=== PATIENT | female | born 1985 | race American Indian/Alaskan Native ===

== ENCOUNTER 2018-06-02 12:54 | Outpatient (CLI) | payer OTHER ==
[2018-06-02 13:19] VITALS: BP 117/68
[2018-06-02] MEDS ORDERED: LACTATED RINGERS 500 ML IV ONE (14:07)
[2018-06-02] MEDS ORDERED: ROCEPHIN/NS 1 GM/50 ML 1 GM/50 ML BAG IV ONE (14:09)
== END 2018-06-02 15:48 | disposition home or self-care (01) ==
LOC: TRG 12:54
PROVIDERS: ATTEND Obstetrics & Gynecology
DX: O47.02 False labor before 37 completed weeks of gestation, second trimester (principal); Z3A.21 21 weeks gestation of pregnancy
CPT/HCPCS: 96360; J0696; J7120

== ENCOUNTER 2018-10-13 05:05 | Inpatient (IN) | payer OTHER ==
[2018-10-13] MEDS ORDERED: LACTATED RINGERS 1,000 ML ONE (05:29)
[2018-10-13] MEDS ORDERED: BRETHINE SUB-Q PRN (06:27)
[2018-10-13] MEDS ORDERED: MINERAL OIL PO PRN (06:27)
[2018-10-13] MEDS ORDERED: BRETHINE IVP PRN (06:27)
[2018-10-13] MEDS ORDERED: AMPICILLIN/NS 2 GM/100 ML 2 GM/100 ML BAG IV ONE (06:27)
[2018-10-13 06:42] LABS: Hemoglobin 9.4 gm/dl (10.1-14.3); Mean Corpuscular HGB Conc 34 % (30-34); Mean Corpuscular Volume 71 fl (79-97); Platelet Count 259 K/mm3 (140-440); Red Blood Count 3.94 M/mm3 (3.65-5.03); Red Cell Distribution Width 16.9 % (13.2-15.2)
[2018-10-13] MEDS ORDERED: LACTATED RINGERS 1,000 ML IV SCH ×3 (07:00→12:00)
[2018-10-13] MEDS ORDERED: PITOCin/NS 20 UNIT/1000ML DRIP 20 UNITS/1,000 ML BAG IV SCH ×3 (07:00→12:00)
--- NOTE | 2018-10-13 08:36 | History and Physical Report ---
History of Present Illness Date of examination: 10/13/18 Date of admission: 10/13/18 05:11 Chief complaint: Water broke and wilfredo History of present illness: Pt is a 33 yo at 41.0 wks EGA who presents with SROM at 0430 today with strong contractions q4-7 minutes. She received care with [facility]. complicated by hypothyroidism, UTI treated and cured, anemia of , and GBS positive status. The fetus has had an unstable lie at term. Past History Past Medical History: thyroid disease (hypothyroid) Past Surgical History: denies: section, myomectomy Social history: no significant social history, . denies: smoking, alcohol abuse, prescription drug abuse - Obstetrical History Expected Date of Delivery: 10/06/18 Actual Gestation: 41 Week(s) 0 Day(s) : 3 Para: 2 Hx # Term Pregnancies: 2 Number of Living Children: 2 Medications and Allergies Allergies Allergy/AdvReac Type Severity Reaction Status Date / Time No Known Allergies Allergy Verified 06/02/18 13:07 Home Medications Medication Instructions Recorded Confirmed Last Taken Type Pnv No.95/Ferrous Fum/Folic AC 1 each PO DAILY 08/31/15 10/13/18 10/12/18 History [ Caplet] Amoxicillin [Amoxicillin TAB] 875 mg PO BID 10 Days #20 tablet 03/08/18 Unknown Rx Vit-Fe Fumar-FA [ 1 tab PO QDAY #30 tablet 03/08/18 10/12/18 09:00 Rx Vitamin] guaiFENesin ER [Mucinex ER] 600 mg PO Q12H 5 Days #10 tablet.er 03/08/18 10/13/18 10/12/18 Rx Synthroid 175 mg PO DAILY 10/13/18 10/13/18 10/12/18 07:00 History Active Meds: Active Medications Ephedrine Sulfate (Ephedrine Sulfate) 10 mg IV Q2M PRN PRN Reason: Hypotension Fentanyl (Sublimaze) 100 mcg IV ONCE ONE Stop: 10/13/18 08:30 Oxytocin/Sodium Chloride (Pitocin/Ns 20 Unit/1000ml Drip) 20 units in 1,000 mls @ 125 mls/hr IV DIRECT JOSS Lactated Ringer's (Lactated Ringers) 1,000 mls @ 125 mls/hr IV DIRECT JOSS Last Admin: 10/13/18 06:44 Dose: 125 mls/hr Documented by: Ampicillin Sodium (Ampicillin/Ns 1 Gm/50 Ml) 1 gm in 50 mls @ 100 mls/hr IV Q4HR JOSS; Protocol Mineral Oil (Mineral Oil) 30 ml PO QHS PRN PRN Reason: Constipation Terbutaline Sulfate (Brethine) 0.25 mg SUB-Q ONCE PRN PRN Reason: Hyperstimulation/Hypertonicity Terbutaline Sulfate (Brethine) 0.25 mg IVP ONCE PRN PRN Reason: Hyperstimulation/Hypertonicity Review of Systems All systems: negative Neurological: no seizures, no headaches, no double vision - Vital Signs Vital signs: Vital Signs Pulse BP 71 170/80 10/13/18 05:15 10/13/18 05:15 Temp Pulse Resp BP Pulse Ox 97.9 F 76 16 144/93 100 10/13/18 08:13 10/13/18 08:28 10/13/18 08:13 10/13/18 08:13 10/13/18 08:28 - Physical Exam Breasts: Positive: deferred Cardiovascular: Regular rate, Normal S1, Normal S2, No murmurs Lungs: Positive: Clear to auscultation, Normal air movement Abdomen: Positive: normal appearance, soft Genitourinary (Female): Positive: normal external genitalia Uterus: Positive: enlarged (gravid) Extremities: Positive: normal - Obstetrical FHR: category 1 Uterine Contraction Monitor Mode: External Cervical Dilatation: 4 (No presenting part palpated) Cervical Effacement Percentage: 70 station: high Uterine Contraction Pattern: Irregular Uterine Tone Measurement Phase: Contraction Uterine Contraction Intensity: Strong/Firm Results Result Diagrams: 10/13/18 05:30 Abnormal lab results 10/13/18 Range/Units 05:30 Hgb 9.4 L (10.1-14.3) gm/dl Hct 28.0 L (30.3-42.9) % MCV 71 L (79-97) fl MCH 24 L (28-32) pg RDW 16.9 H (13.2-15.2) % All other labs normal. Assessment and Plan A: 33 yo at 41.0 wks Preeclampsia Malpresentation with unstable lie by ultrasound Active labor GBS positive Anemia Hypothyroidism P: BPP Plan for LTCS now with Dr. Koo 2g amp infused Initiate magnesium sulfate after
--- NOTE | 2018-10-13 08:47 | Event Note ---
Date: 10/13/18 Ultrasound reveals breech presentation. Proceed to primary section.
--- NOTE | 2018-10-13 08:56 | Anesthesia Consultation ---
Anesthesia Consult and Med Hx Date of service: 10/13/18 - Airway Anesthetic Teeth Evaluation: Good ROM Head & Neck: Adequate Mental/Hyoid Distance: Adequate Mallampati Class: Class II - Pulmonary Exam CTA: Yes - Cardiac Exam Cardiac Exam: RRR - Pre-Operative Health Status ASA Pre-Surgery Classification: ASA2 Proposed Anesthetic Plan: Spinal - Pulmonary Hx Asthma: No COPD: No Hx Pneumonia: No - Cardiovascular System Hx Hypertension: No - Central Nervous System Hx Seizures: No Hx Psychiatric Problems: No - Endocrine Hx Renal Disease: No Hx End Stage Renal Disease: No Hx Hypothyroidism: Yes Hx Hyperthyroidism: No - Hematic Hx Anemia: No Hx Sickle Cell Disease: No - Other Systems Hx Alcohol Use: No
--- NOTE | 2018-10-13 08:56 | Anesthesia Day of Surgery ---
Anesthesia Day of Surgery - Day of Surgery Patient Examined: Yes Patient H&P Reviewed: Yes Patient is NPO: Yes
[2018-10-13] MEDS ORDERED: REGLAN IV NR (09:00)
[2018-10-13] MEDS ORDERED: ANCEF/STERILE WATER 2 GM/20 ML 2 GM/20 ML SYRINGE IV NR (09:00)
[2018-10-13] MEDS ORDERED: SUBLIMAZE IV ONE (09:00)
[2018-10-13] MEDS ORDERED: PEPCID IV NR (09:00)
[2018-10-13] MEDS ORDERED: BICITRA PO NR (09:00)
[2018-10-13 09:02] LABS: Alanine Aminotransferase 11 units/L (7-56); Uric Acid 4.3 mg/dL (3.5-7.6)
[2018-10-13] MEDS ORDERED: ZOFRAN ONE (09:05)
[2018-10-13] MEDS ORDERED: SUBLIMAZE ONE (09:05)
--- NOTE | 2018-10-13 09:32 | Ultrasound Report ---
ULTRASOUND OB LIMITED ULTRASOUND OB BIOPHYSICAL PROFILE HISTORY: well being, post dates, checking presentation. TECHNIQUE: Transabdominal grayscale ultrasound with color Doppler imaging. COMPARISON: None at this facility. FINDINGS: A single intrauterine is identified with heart rate measuring 145 bpm. position is tr ansverse with head to maternal right. breathing movements, movements, posture and tone and qualitative amniotic fluid vol ume were scored 2. IMPRESSION: presentation is transverse with head to the maternal right. Biophysical profile score 8/8. Signer Name: Salvador Braden Jr, MD Signed: 10/13/2018 9:27 AM Workstation Name: [id number]
[2018-10-13] MEDS ORDERED: WATER FOR IRRIG STERILE IR ONE (09:50)
[2018-10-13] MEDS ORDERED: NACL 0.9% IR ONE (09:50)
[2018-10-13] MEDS ORDERED: BENADRYL ONE (10:11)
[2018-10-13] MEDS ORDERED: TORADOL ONE (10:11)
[2018-10-13] MEDS ORDERED: DILAUDID ONE ×2 (10:22→10:52)
[2018-10-13] MEDS ORDERED: VERSED ONE (10:23)
[2018-10-13] MEDS ORDERED: AMPICILLIN/NS 1 GM/50 ML 1 GM/50 ML BAG IV SCH (10:27)
--- NOTE | 2018-10-13 11:11 | Procedure Note ---
OB Delivery Note - Delivery Date of Delivery: 10/13/18 Surgeon: MELANIE LOFTON Estimated blood loss: 1000cc - Section Preop diagnosis: breech, other (active labor, SROM) Postop diagnosis: same section procedure: section, primary low transverse Disposition: PACU Complications: none Narrative: Please see operative report. - A at 1 minute: 9 at 5 minutes: 9 Infant Gender: Female (3283g (7lb 4oz) @ 1007 am)
--- NOTE | 2018-10-13 11:20 | Operative Report ---
Operative Report Operative Report: Date of procedure: October 13, 2018 Preoperative diagnosis: 1) IUP at 41w0d 2) SROM 3) Active Labor 4) Malpresenta tion- Double footling Breech 5) Severe Preeclampsia Postoperative diagnosis: Same 6) Suspected Endometriosis Procedure: Primary low transverse section Surgeon: Ritu Koo M.D. Anesthesia: Regional Findings: 1) Viable female , Apgars 9 and 9, weight 3283g, (7 lb 4 oz) in double footling breech presentation 2) Normal appearing ovaries and tubes 3) Numerous brown subcentimeter implants over entire anterior surface of the uterus, posterior surface of the uterus, parietal peritoneum and bladder flap suggestive of endometriosis Estimated blood loss: 1000 mL IV fluids: 1400 mL Urine output: 300 mL, clear at the end of the procedure Drains: Campbell to gravity Specimens: Implant from anterior surface of uterus to pathology Complications: None. Counts correct x 3 Disposition: Stable to PACU Indication for procedure: Pt is a 33 year old [place] female at 41w0d who presents with rupture of membranes in active labor found to be in breech presentation. The decision w as made to proceed with delivery. Operation in detail: After the risks, benefits, alternatives and complications were explained to the patient she gave informed consent for the procedure. She was subsequently taken to the operating room where spinal anesthesia was noted to be adequate. She was subsequently placed in the dorsal supine position with leftward tilt and prepped and draped in a normal sterile fashion. heart tones were noted to be in the 140s prior to incision. A timeout was performed. A Pfannenstiel skin incision was made with the knife and carried down to the layer of the fascia with the Bovie. The fascia was incised in the midline and the fascial incision was extended bilaterally with the Bovie. Attention was then turned to the superior aspect of the incision which was grasped with two Kochers, tented up, and dissected off the rectus muscles. Attention was then turned to the inferior aspect of the incision which was grasped with two Kochers, tented up and dissected off the rectus muscles. The rectus muscles were then in the midline. The peritoneum was then entered bluntly. Upon entry into the peritoneal cavity innumerable brown implants were noted on peritoneum , anterior surface of the uterus and the vesicouterine peritoneum. The peritoneal incision was extended with good visualization of the bladder. The peritoneal incision was then stretched. An Seng self-retaining retractor was placed for visualization. The bladder blade was placed. The vesicouterine peritoneum was not well developed and a bladder flap was not created. A transverse incision was made in the lower uterine segment with a knife and extended bilaterally with the bandage scissors. The buttocks was noted to socked into a pocket on the maternal left, but was delivered with some difficulty along with the legs to the sacrum. The fetus was then covered with a moist towel and the remainder of the torso, arms and then head were delivered without difficulty. was bulb suctioned at delivery. The cord was clamped and cut and the was handed to NICU staff in attendance. The placenta was then delivered manually. The uterus was then exteriorized and cleared of all clots and debris. The brown colored implants were noted on the posterior surface fo the uterus as well. The hysterotomy was then reapproximated with 0 Vicryl in a running locked fashion. A figure of eight of the same suture was used to obtain hemostasis. The hysterotomy was inspected and hemostasis was noted. The Seng self-retaining retractor was removed. The gutters were irrigated and cleared of all clots and debris. The hysterotomy was again inspected and noted to be hemostatic. Surgicel was placed over the hysterotomy. The peritoneum was reapproximated with 2-0 Vicryl in a running fashion incorporating the rectus muscles. The fascia was reapproximated with 0 Vicryl in a running fashion. The skin was reapproximated with diane. The incision was then covered with a pressure dressing. The procedure was then ended. The patient tolerated the procedure well and was taken to the PACU in stable condition. All instrument, lap, and needle counts were correct 3.
[2018-10-13] MEDS ORDERED: CALCIUM GLUCONATE IV SCH (11:22)
[2018-10-13] MEDS ORDERED: APRESOLINE IV PRN (11:22)
[2018-10-13] MEDS ORDERED: MAGNESIUM SULFATE 4GM/100ML 4 GM/100 ML BAG IV ONE (11:22)
[2018-10-13] MEDS ORDERED: ZOFRAN IV PRN ×2 (11:23→11:28)
[2018-10-13] MEDS ORDERED: LANSINOH TP PRN (11:23)
[2018-10-13] MEDS ORDERED: TUCKS PAD TP PRN (11:23)
[2018-10-13] MEDS ORDERED: NARCAN 0.4 MG/1 ML IV PRN ×2 (11:23→11:28)
[2018-10-13] MEDS ORDERED: MORPHINE IV PRN ×3 (11:23→11:28)
[2018-10-13] MEDS ORDERED: PHENERGAN PR PRN (11:28)
[2018-10-13] MEDS ORDERED: PHENERGAN PO PRN (11:28)
--- NOTE | 2018-10-13 11:28 | Post Anesthesia Evaluation ---
- Post Anesthesia Evaluation Patient Participated: Yes Airway Patent: Yes Stable Respiratory Function: Yes Nausea/Vomiting: No Temp > 96.8F: Yes Pain Manageable: Yes Adequeate Hydration: Yes Anesthesia Complications: No Block Receding Appropriately: Yes Patient on Ventilator: No
[2018-10-13] MEDS ORDERED: MAGNESIUM SULFATE 40GM/1000ML 40 GM/1,000 ML BAG IV SCH (12:00)
[2018-10-13] MEDS ORDERED: SODIUM CHLORIDE FLUSH SYRINGE 10 ML IV SCH ×2 (12:00)
[2018-10-13] MEDS: DILAUDID IV PRN ×2 (13:58→18:37)
[2018-10-13] MEDS: TORADOL IV PRN ×2 (14:01→21:44)
[2018-10-13] MEDS: ANCEF/NS 1 GM/50 ML 1 GM/50 ML BAG IV SCH (17:27)
[2018-10-13] MEDS ORDERED: LACTATED RINGERS 1,000 ML IV ONE (18:00)
[2018-10-13] MEDS: D5LR 1,000 ML IV SCH (18:52)
[2018-10-13 19:33] LABS: Bacteria,Urine 1+ /HPF (Negative); Bilirubin,Urine NEG (Negative); Blood,Urine LG (Negative); Color,Urine Yellow (Yellow); Hyaline Casts,Urine 7 /LPF; Mucus,Urine FEW /HPF; Urobilinogen,Urine < 2.0 mg/dL (<2.0)
[2018-10-13 19:34] LABS: RBC,Urine > 182.0 /HPF (0.0-6.0)
[2018-10-13 19:53] LABS: Uric Acid 4.1 mg/dL (3.5-7.6)
[2018-10-13] MEDS: MYLICON PO PRN (22:29)
[2018-10-14 00:01] LABS: Hemoglobin 5.6 gm/dl (10.1-14.3)
[2018-10-14 00:02] LABS: Hematocrit 16.6 % (30.3-42.9)
[2018-10-14] MEDS: PERCOCET 5/325 PO PRN ×2 (01:34→16:54)
[2018-10-14] MEDS: ANCEF/NS 1 GM/50 ML 1 GM/50 ML BAG IV SCH (01:34)
--- NOTE | 2018-10-14 01:56 | Event Note ---
Date: 10/14/18 Late entry. Called by RN secondary to critical hemoglobin and hematocrit. Repeat H/H ordered STAT. Plan to transfuse 2 u PRBCs in value is correct. Close clinical monitoring.
[2018-10-14 02:12] LABS: Mean Corpuscular HGB Conc 34 % (30-34); Mean Corpuscular Volume 71 fl (79-97); Platelet Count 208 K/mm3 (140-440); Red Blood Count 2.47 M/mm3 (3.65-5.03); Red Cell Distribution Width 17.2 % (13.2-15.2)
[2018-10-14 02:24] LABS: Hematocrit 17.6 % (30.3-42.9)
[2018-10-14] MEDS ORDERED: NACL 0.9% 500 ML 500 ML IV ONE (02:36)
--- NOTE | 2018-10-14 02:38 | Event Note ---
Date: 10/14/18 Repeat H/H. 09/20. Plan to transfuse two units of packed red blood cells. Closely monitor clinical status.
[2018-10-14] MEDS: DILAUDID IV PRN ×3 (03:10→14:00)
[2018-10-14] MEDS ORDERED: BOOSTRIX IM ONE (06:00)
[2018-10-14] MEDS ORDERED: NACL 0.9% 500 ML 500 ML ONE (06:49)
--- NOTE | 2018-10-14 08:54 | Progress Note ---
Assessment and Plan A: POD#1 s/p primary section, Acute on chronic anemia, receiving blood transfusion, Severe Preeclampsia on Magnesium Sulfate for Seizure Prophylaxis P: Complete 2 units of PRBCs then repeat H/H. Continue to monitor urine output. Hold diet to sips and chips. Subjective - Subjective Date of service: 10/14/18 Principal diagnosis: s/p primary section, severe preeclamspia, acute on chronic anemia Interval history: Pt feels weak today. No flatus or bowel movement. Currently on magnesium sulfate for seizure prophylaxis. Patient reports: appetite normal, no voiding normally (elena in place ), no flatus, no bowel movement, no ambulating normally (SCDs in place ) [place]: doing well Objective - Vital Signs Latest vital signs: Vital Signs Temp Pulse Resp BP Pulse Ox 10/14/18 08:46 100 H 100 10/14/18 08:45 104 H 157/98 10/14/18 08:41 103 H 100 10/14/18 08:40 102 H 140/83 10/14/18 08:36 113 H 100 10/14/18 08:35 102 H 142/86 92 10/14/18 08:30 102 H 152/83 97 10/14/18 08:25 103 H 145/88 99 10/14/18 08:20 100 H 98 10/14/18 08:16 98.3 F 10/14/18 08:15 100 H 147/85 99 10/14/18 08:14 103 H 152/90 10/14/18 07:45 102 H 134/85 10/14/18 07:35 102 H 92 10/14/18 07:34 102 H 100 10/14/18 07:30 104 H 93 10/14/18 07:29 104 H 100 10/14/18 07:24 105 H 99 10/14/18 07:19 108 H 100 10/14/18 07:15 107 H 171/87 10/14/18 07:14 101 H 98 10/14/18 07:09 99 H 100 10/14/18 07:04 99 H 100 10/14/18 06:59 100 H 100 10/14/18 06:45 99 H 129/73 10/14/18 06:15 92 H 143/72 10/14/18 05:45 93 H 147/86 10/14/18 05:15 90 154/82 10/14/18 05:10 108 H 86 10/14/18 05:08 90 99 10/14/18 05:03 89 99 10/14/18 04:58 91 H 98 10/14/18 04:53 84 100 10/14/18 04:48 92 H 100 10/14/18 04:45 85 144/75 10/14/18 04:43 85 100 10/14/18 04:38 93 H 99 10/14/18 04:33 97 H 97 10/14/18 04:28 88 98 10/14/18 04:23 88 98 10/14/18 04:18 86 98 10/14/18 04:15 84 108/61 10/14/18 04:13 89 97 10/14/18 04:08 86 99 10/14/18 04:03 86 99 10/14/18 03:58 89 98 10/14/18 03:53 100 H 97 10/14/18 03:48 98 H 99 10/14/18 03:46 75 129/74 89 10/14/18 03:43 98 H 99 10/14/18 03:40 18 10/14/18 03:38 103 H 98 10/14/18 03:33 97 H 100 10/14/18 03:28 102 H 99 10/14/18 03:23 101 H 100 10/14/18 03:18 98 H 100 10/14/18 03:15 98 H 136/80 10/14/18 03:13 96 H 100 10/14/18 03:10 18 10/14/18 03:08 100 H 100 10/14/18 03:03 98 H 100 10/14/18 02:58 98 H 100 10/14/18 02:53 106 H 100 10/14/18 02:48 103 H 100 10/14/18 02:45 104 H 141/83 10/14/18 02:43 106 H 100 10/14/18 02:38 106 H 100 10/14/18 02:34 18 10/14/18 02:33 99 H 100 10/14/18 02:28 106 H 100 10/14/18 02:23 104 H 100 10/14/18 02:18 101 H 100 10/14/18 02:15 100 H 136/88 10/14/18 02:13 101 H 100 10/14/18 02:08 97 H 100 10/14/18 02:03 101 H 100 10/14/18 01:58 101 H 100 10/14/18 01:53 98 H 100 10/14/18 01:48 92 H 100 10/14/18 01:45 99 H 148/85 10/14/18 01:43 94 H 100 10/14/18 01:41 92 H 94 10/14/18 01:38 96 H 100 10/14/18 01:36 110 H 88 10/14/18 01:34 18 10/14/18 01:33 96 H 100 10/14/18 01:28 92 H 100 10/14/18 01:23 111 H 99 10/14/18 01:21 53 L 85 10/14/18 01:18 98 H 100 10/14/18 01:15 99 H 139/83 10/14/18 01:13 100 H 100 10/14/18 01:08 96 H 100 10/14/18 01:03 101 H 100 10/14/18 00:58 102 H 100 10/14/18 00:53 107 H 100 10/14/18 00:47 118 H 100 10/14/18 00:45 104 H 144/75 10/14/18 00:42 111 H 100 10/14/18 00:37 106 H 100 10/14/18 00:32 99 H 100 10/14/18 00:27 112 H 100 10/14/18 00:22 99 H 100 10/14/18 00:17 98 H 100 10/14/18 00:15 99 H 126/74 10/14/18 00:12 96 H 100 10/14/18 00:07 102 H 100 10/14/18 00:02 98 H 100 10/13/18 23:57 104 H 100 10/13/18 23:52 94 H 100 10/13/18 23:47 97 H 100 10/13/18 23:45 92 H 123/76 10/13/18 23:42 105 H 100 10/13/18 23:37 102 H 100 10/13/18 23:32 101 H 100 10/13/18 23:27 100 H 100 10/13/18 23:22 101 H 100 10/13/18 23:17 91 H 100 10/13/18 23:15 95 H 121/69 10/13/18 23:12 98 H 100 10/13/18 23:07 100 H 100 10/13/18 23:02 104 H 100 10/13/18 22:57 101 H 100 10/13/18 22:52 101 H 100 10/13/18 22:47 107 H 100 10/13/18 22:45 101 H 127/72 10/13/18 22:42 107 H 100 10/13/18 22:37 101 H 100 10/13/18 22:32 107 H 100 10/13/18 22:27 102 H 100 10/13/18 22:22 107 H 100 10/13/18 22:17 102 H 100 10/13/18 22:15 102 H 128/77 10/13/18 22:12 105 H 100 10/13/18 22:07 106 H 100 10/13/18 22:02 104 H 100 10/13/18 21:57 106 H 100 10/13/18 21:52 103 H 100 10/13/18 21:51 107 H 0 L 10/13/18 21:47 104 H 100 10/13/18 21:45 105 H 126/76 10/13/18 21:42 102 H 99 10/13/18 21:37 103 H 100 10/13/18 21:32 101 H 100 10/13/18 21:27 111 H 97 10/13/18 21:22 103 H 100 10/13/18 21:17 100 H 98 10/13/18 21:15 99 H 102/55 10/13/18 21:12 104 H 99 10/13/18 21:07 102 H 98 10/13/18 21:02 112 H 100 10/13/18 20:57 102 H 98 10/13/18 20:52 102 H 99 10/13/18 20:47 114 H 98 10/13/18 20:45 107 H 123/74 10/13/18 20:42 115 H 100 10/13/18 20:37 110 H 100 10/13/18 20:32 119 H 100 10/13/18 20:27 115 H 100 10/13/18 20:22 105 H 99 10/13/18 20:17 117 H 98 10/13/18 20:16 115 H 127/76 10/13/18 20:12 105 H 99 10/13/18 20:07 99 H 100 10/13/18 20:02 99 H 100 10/13/18 19:57 103 H 100 10/13/18 19:52 102 H 100 10/13/18 19:47 100 H 100 10/13/18 19:45 100 H 142/87 10/13/18 19:42 99 H 100 10/13/18 19:37 107 H 100 10/13/18 19:32 101 H 100 10/13/18 19:27 94 H 99 10/13/18 19:22 102 H 100 10/13/18 19:17 103 H 99 10/13/18 19:15 102 H 149/88 10/13/18 19:12 99 H 100 10/13/18 19:07 100 H 99 10/13/18 19:02 102 H 99 10/13/18 18:57 99 H 99 10/13/18 18:52 99 H 100 10/13/18 18:51 98.2 F 16 10/13/18 18:47 101 H 100 10/13/18 18:45 100 H 144/87 10/13/18 18:42 95 H 100 10/13/18 18:37 97 H 18 100 10/13/18 18:32 97 H 100 10/13/18 18:27 106 H 99 10/13/18 18:22 104 H 99 10/13/18 18:17 104 H 99 10/13/18 18:15 101 H 149/88 10/13/18 18:12 103 H 99 10/13/18 18:07 103 H 100 10/13/18 18:02 105 H 100 10/13/18 17:57 102 H 98 10/13/18 17:52 106 H 97 10/13/18 17:47 98 H 98 10/13/18 17:45 103 H 141/88 10/13/18 17:42 101 H 98 10/13/18 17:37 100 H 98 10/13/18 17:32 100 H 98 10/13/18 17:27 101 H 100 10/13/18 17:22 95 H 100 10/13/18 17:17 97 H 99 10/13/18 17:15 98 H 156/86 10/13/18 17:12 100 H 100 10/13/18 17:07 99 H 100 10/13/18 17:02 95 H 100 10/13/18 16:57 101 H 100 10/13/18 16:52 105 H 100 10/13/18 16:47 106 H 100 10/13/18 16:45 99 H 136/89 10/13/18 16:42 96 H 100 10/13/18 16:37 117 H 100 10/13/18 16:32 103 H 100 10/13/18 16:27 104 H 100 10/13/18 16:22 110 H 100 10/13/18 16:17 114 H 100 10/13/18 16:15 109 H 148/89 10/13/18 16:12 107 H 99 10/13/18 16:07 110 H 98 10/13/18 16:02 109 H 99 10/13/18 15:57 109 H 98 10/13/18 15:52 104 H 99 10/13/18 15:47 111 H 98 10/13/18 15:45 107 H 141/89 10/13/18 15:42 104 H 99 10/13/18 15:37 99 H 98 10/13/18 15:32 103 H 99 10/13/18 15:27 98 H 99 10/13/18 15:22 94 H 100 10/13/18 15:21 118 H 93 10/13/18 15:17 101 H 99 10/13/18 15:15 100 H 146/87 10/13/18 15:12 97 H 99 10/13/18 15:07 101 H 99 10/13/18 15:02 101 H 99 10/13/18 15:00 18 10/13/18 14:57 102 H 99 10/13/18 14:52 98 H 100 10/13/18 14:47 100 H 99 10/13/18 14:45 102 H 137/93 10/13/18 14:42 102 H 100 10/13/18 14:37 102 H 99 10/13/18 14:32 100 H 99 10/13/18 14:27 94 H 100 10/13/18 14:22 92 H 99 10/13/18 14:17 99 H 100 10/13/18 14:15 94 H 146/92 10/13/18 14:12 100 H 100 10/13/18 14:07 111 H 100 10/13/18 14:02 92 H 100 10/13/18 13:57 90 100 10/13/18 13:52 94 H 100 10/13/18 13:50 93 H 147/97 10/13/18 13:47 96 H 100 10/13/18 13:46 103 H 165/91 10/13/18 13:42 105 H 100 10/13/18 13:37 95 H 100 10/13/18 13:32 93 H 100 10/13/18 13:28 109 H 149/92 10/13/18 13:15 98.1 F 18 10/13/18 13:14 90 135/93 10/13/18 12:35 97.6 F 101 H 14 142/90 100 10/13/18 12:20 101 H 14 144/91 100 10/13/18 12:05 107 H 14 129/93 100 10/13/18 11:50 96 H 16 130/93 100 10/13/18 11:45 94 H 16 130/88 100 10/13/18 11:42 97.7 F 99 H 15 130/74 10/13/18 11:30 89 14 133/91 100 10/13/18 11:25 94 H 15 130/73 100 10/13/18 11:20 97.6 F 93 H 15 154/93 100 10/13/18 09:28 82 100 10/13/18 09:23 75 100 10/13/18 09:18 75 100 10/13/18 09:13 72 100 10/13/18 09:08 80 100 10/13/18 09:03 80 100 10/13/18 08:58 78 100 10/13/18 08:53 69 100 Intake and Output 10/13/18 10/14/18 10/14/18 22:59 06:59 14:59 Intake Total 150 0 Output Total 175 500 Balance -25 -500 0 Intake: IV 50 ANCEF/NS 1 GM/50 ML 1 gm 50 In 50 ml @ 100 mls/hr IV Q8H COUNT INCLUDES THE [facility] Rx#:[id number] Oral 100 Blood Product 0 Leukoreduced Red Blood 0 Cells Unit [id number] Output: Urine 175 500 Indwelling Catheter 175 Uretheral (Elena) 500 Other: Total, Intake Amount 100 Total, Output Amount 50 - Exam Breasts: Present: deferred Cardiovascular: Present: Regular rate Lungs: Present: Clear to auscultation Abdomen: Present: soft, distention (moderate), abnormal bowel sounds (near absent ) Uterus: Present: fundal height at umbilicus Extremities: Present: other (SCDs in place) Incision: Present: dressed - Labs Labs: Abnormal lab results 10/13/18 10/13/18 10/13/18 Range/Units 05:30 08:26 18:00 RBC (3.65-5.03) M/mm3 Hgb (10.1-14.3) gm/dl Hct (30.3-42.9) % MCV (79-97) fl MCH (28-32) pg RDW (13.2-15.2) % Creatinine 0.5 L (0.7-1.2) mg/dL Magnesium (1.7-2.3) mg/dL Lactate Dehydrogenase (91-180) units/L Ur Specific [place] 1.031 H (1.003-1.030) Urine WBC (Auto) 32.0 H (0.0-6.0) /HPF Crossmatch See Detail 10/13/18 10/13/18 10/13/18 Range/Units 18:00 18:00 23:42 RBC (3.65-5.03) M/mm3 Hgb 5.6 L* D (10.1-14.3) gm/dl Hct 16.6 L* D (30.3-42.9) % MCV (79-97) fl MCH (28-32) pg RDW (13.2-15.2) % Creatinine 0.5 L (0.7-1.2) mg/dL Magnesium 3.90 H (1.7-2.3) mg/dL Lactate Dehydrogenase 266 H (91-180) units/L Ur Specific [place] (1.003-1.030) Urine WBC (Auto) (0.0-6.0) /HPF Crossmatch 10/14/18 10/14/18 10/14/18 Range/Units 00:50 02:00 05:45 RBC 2.47 L (3.65-5.03) M/mm3 Hgb 6.0 L (10.1-14.3) gm/dl Hct 17.6 L* (30.3-42.9) % MCV 71 L (79-97) fl MCH 24 L (28-32) pg RDW 17.2 H (13.2-15.2) % Creatinine (0.7-1.2) mg/dL Magnesium 4.00 H 4.00 H (1.7-2.3) mg/dL Lactate Dehydrogenase (91-180) units/L Ur Specific [place] (1.003-1.030) Urine WBC (Auto) (0.0-6.0) /HPF Crossmatch
[2018-10-14] MEDS ORDERED: M-M-R II VACCINE SUB-Q ONE (11:24)
[2018-10-14] MEDS: TORADOL IV PRN ×2 (11:47→20:56)
[2018-10-14] MEDS: D5LR 1,000 ML IV SCH ×2 (11:53→16:53)
--- NOTE | 2018-10-14 17:43 | Progress Note ---
Assessment and Plan A: POD#1 s/p primary section at term Acute on chronic anemia s/p 2 units PRBCs, post transfusion hemoglobin and hematocrit pending Severe Preeclampsia s/p 24 hrs Magnesium Sulfate for Seizure Prophylaxis Hypothyroidism on Levothyroxine P: Follow up lab values Slowly advance diet Encourage ambulation Monitor clinically Subjective - Subjective Date of service: 10/14/18 Principal diagnosis: s/p primary section, severe preeclamspia, acute on chronic anemia Interval history: Pt feeling better than earlier. She reports voiding earlier. Minimal vaginal bleeding. No flatus. Patient reports: voiding normally, ambulating normally (minimally to the bathroom), no flatus, no bowel movement : doing well Objective - Vital Signs Latest vital signs: Vital Signs Temp Pulse Resp BP BP Pulse Ox 10/14/18 16:54 20 10/14/18 14:30 98.7 F 78 20 140/78 10/14/18 13:49 89 99 10/14/18 13:44 87 98 10/14/18 13:39 95 H 99 10/14/18 13:37 90 146/78 10/14/18 13:34 93 H 99 10/14/18 13:33 91 H 69 L 10/14/18 13:27 89 100 10/14/18 13:22 90 135/68 100 10/14/18 13:17 93 H 100 10/14/18 13:12 89 100 10/14/18 13:07 91 H 139/71 100 10/14/18 13:02 88 100 10/14/18 12:57 91 H 100 10/14/18 12:52 93 H 140/68 100 10/14/18 12:47 94 H 100 10/14/18 12:42 91 H 100 10/14/18 12:37 97 H 149/65 100 10/14/18 12:32 102 H 100 10/14/18 12:27 97 H 100 10/14/18 12:22 94 H 165/82 100 10/14/18 12:17 94 H 100 10/14/18 12:12 93 H 100 10/14/18 12:07 100 H 134/73 100 10/14/18 12:02 99 H 100 10/14/18 11:57 101 H 100 10/14/18 11:52 102 H 147/78 100 10/14/18 11:47 103 H 143/81 100 10/14/18 11:42 104 H 138/83 100 10/14/18 11:37 104 H 140/81 100 10/14/18 11:32 102 H 143/80 100 10/14/18 11:30 98.4 F 10/14/18 11:27 108 H 100 10/14/18 11:24 98.4 F 103 H 141/82 10/14/18 11:22 104 H 100 10/14/18 11:17 104 H 100 10/14/18 11:12 98 H 100 10/14/18 11:07 99 H 100 10/14/18 11:02 100 H 100 10/14/18 10:57 97 H 100 10/14/18 10:52 101 H 100 10/14/18 10:49 102 H 138/80 10/14/18 10:47 102 H 100 10/14/18 10:42 101 H 100 10/14/18 10:37 98 H 100 10/14/18 10:34 96 H 136/81 10/14/18 10:32 99 H 100 10/14/18 10:27 96 H 100 10/14/18 10:22 104 H 100 10/14/18 10:20 109 H 125/79 10/14/18 10:17 102 H 100 10/14/18 10:12 101 H 100 10/14/18 10:07 100 H 100 10/14/18 10:04 101 H 131/72 10/14/18 10:02 101 H 100 10/14/18 09:57 106 H 100 10/14/18 09:52 100 H 100 10/14/18 09:49 100 H 135/71 10/14/18 09:47 101 H 100 10/14/18 09:42 103 H 100 10/14/18 09:37 97 H 100 10/14/18 09:34 100 H 134/70 10/14/18 09:32 107 H 100 10/14/18 09:31 106 H 88 10/14/18 09:26 94 H 100 10/14/18 09:21 97 H 100 10/14/18 09:20 98 H 137/72 10/14/18 09:16 93 H 100 10/14/18 09:11 99 H 100 10/14/18 09:06 103 H 100 10/14/18 09:05 100 H 134/83 10/14/18 09:01 102 H 100 10/14/18 09:00 98.4 F 10/14/18 08:56 98 H 100 10/14/18 08:51 104 H 100 10/14/18 08:46 100 H 100 10/14/18 08:45 98.3 F 104 H 157/98 10/14/18 08:41 103 H 100 10/14/18 08:40 102 H 140/83 10/14/18 08:36 113 H 100 10/14/18 08:35 102 H 142/86 92 10/14/18 08:30 98.4 F 102 H 152/83 97 10/14/18 08:25 103 H 145/88 99 10/14/18 08:20 98.4 F 100 H 98 10/14/18 08:16 98.3 F 10/14/18 08:15 98.3 F 100 H 147/85 99 10/14/18 08:14 98.3 F 103 H 152/90 10/14/18 07:45 102 H 134/85 10/14/18 07:35 102 H 92 10/14/18 07:34 102 H 100 10/14/18 07:30 104 H 93 10/14/18 07:29 104 H 100 10/14/18 07:24 105 H 99 10/14/18 07:19 108 H 100 10/14/18 07:15 107 H 171/87 10/14/18 07:14 101 H 98 10/14/18 07:09 99 H 100 10/14/18 07:04 99 H 100 10/14/18 06:59 100 H 100 10/14/18 06:45 99 H 129/73 10/14/18 06:15 92 H 143/72 10/14/18 05:45 93 H 147/86 10/14/18 05:15 90 154/82 10/14/18 05:10 108 H 86 10/14/18 05:08 90 99 10/14/18 05:03 89 99 10/14/18 04:58 91 H 98 10/14/18 04:53 84 100 10/14/18 04:48 92 H 100 10/14/18 04:45 85 144/75 10/14/18 04:43 85 100 10/14/18 04:38 93 H 99 10/14/18 04:33 97 H 97 10/14/18 04:28 88 98 10/14/18 04:23 88 98 10/14/18 04:18 86 98 10/14/18 04:15 84 108/61 10/14/18 04:13 89 97 10/14/18 04:08 86 99 10/14/18 04:03 86 99 10/14/18 03:58 89 98 10/14/18 03:53 100 H 97 10/14/18 03:48 98 H 99 10/14/18 03:46 75 129/74 89 10/14/18 03:43 98 H 99 10/14/18 03:40 18 10/14/18 03:38 103 H 98 10/14/18 03:33 97 H 100 10/14/18 03:28 102 H 99 10/14/18 03:23 101 H 100 10/14/18 03:18 98 H 100 10/14/18 03:15 98 H 136/80 10/14/18 03:13 96 H 100 10/14/18 03:10 18 10/14/18 03:08 100 H 100 10/14/18 03:03 98 H 100 10/14/18 02:58 98 H 100 10/14/18 02:53 106 H 100 10/14/18 02:48 103 H 100 10/14/18 02:45 104 H 141/83 10/14/18 02:43 106 H 100 10/14/18 02:38 106 H 100 10/14/18 02:34 18 10/14/18 02:33 99 H 100 10/14/18 02:28 106 H 100 10/14/18 02:23 104 H 100 10/14/18 02:18 101 H 100 10/14/18 02:15 100 H 136/88 10/14/18 02:13 101 H 100 10/14/18 02:08 97 H 100 10/14/18 02:03 101 H 100 10/14/18 01:58 101 H 100 10/14/18 01:53 98 H 100 10/14/18 01:48 92 H 100 10/14/18 01:45 99 H 148/85 10/14/18 01:43 94 H 100 10/14/18 01:41 92 H 94 10/14/18 01:38 96 H 100 10/14/18 01:36 110 H 88 10/14/18 01:34 18 10/14/18 01:33 96 H 100 10/14/18 01:28 92 H 100 10/14/18 01:23 111 H 99 10/14/18 01:21 53 L 85 10/14/18 01:18 98 H 100 10/14/18 01:15 99 H 139/83 10/14/18 01:13 100 H 100 10/14/18 01:08 96 H 100 10/14/18 01:03 101 H 100 10/14/18 00:58 102 H 100 10/14/18 00:53 107 H 100 10/14/18 00:47 118 H 100 10/14/18 00:45 104 H 144/75 10/14/18 00:42 111 H 100 10/14/18 00:37 106 H 100 10/14/18 00:32 99 H 100 10/14/18 00:27 112 H 100 10/14/18 00:22 99 H 100 10/14/18 00:17 98 H 100 10/14/18 00:15 99 H 126/74 10/14/18 00:12 96 H 100 10/14/18 00:07 102 H 100 10/14/18 00:02 98 H 100 10/13/18 23:57 104 H 100 10/13/18 23:52 94 H 100 10/13/18 23:47 97 H 100 10/13/18 23:45 92 H 123/76 10/13/18 23:42 105 H 100 10/13/18 23:37 102 H 100 10/13/18 23:32 101 H 100 10/13/18 23:27 100 H 100 10/13/18 23:22 101 H 100 10/13/18 23:17 91 H 100 10/13/18 23:15 95 H 121/69 10/13/18 23:12 98 H 100 10/13/18 23:07 100 H 100 10/13/18 23:02 104 H 100 10/13/18 22:57 101 H 100 10/13/18 22:52 101 H 100 10/13/18 22:47 107 H 100 10/13/18 22:45 101 H 127/72 10/13/18 22:42 107 H 100 10/13/18 22:37 101 H 100 10/13/18 22:32 107 H 100 10/13/18 22:27 102 H 100 10/13/18 22:22 107 H 100 10/13/18 22:17 102 H 100 10/13/18 22:15 102 H 128/77 10/13/18 22:12 105 H 100 10/13/18 22:07 106 H 100 10/13/18 22:02 104 H 100 10/13/18 21:57 106 H 100 10/13/18 21:52 103 H 100 10/13/18 21:51 107 H 0 L 10/13/18 21:47 104 H 100 10/13/18 21:45 105 H 126/76 10/13/18 21:42 102 H 99 10/13/18 21:37 103 H 100 10/13/18 21:32 101 H 100 10/13/18 21:27 111 H 97 10/13/18 21:22 103 H 100 10/13/18 21:17 100 H 98 10/13/18 21:15 99 H 102/55 10/13/18 21:12 104 H 99 10/13/18 21:07 102 H 98 10/13/18 21:02 112 H 100 10/13/18 20:57 102 H 98 10/13/18 20:52 102 H 99 10/13/18 20:47 114 H 98 10/13/18 20:45 107 H 123/74 10/13/18 20:42 115 H 100 10/13/18 20:37 110 H 100 10/13/18 20:32 119 H 100 10/13/18 20:27 115 H 100 10/13/18 20:22 105 H 99 10/13/18 20:17 117 H 98 10/13/18 20:16 115 H 127/76 10/13/18 20:12 105 H 99 10/13/18 20:07 99 H 100 10/13/18 20:02 99 H 100 10/13/18 19:57 103 H 100 10/13/18 19:52 102 H 100 10/13/18 19:47 100 H 100 10/13/18 19:45 100 H 142/87 10/13/18 19:42 99 H 100 10/13/18 19:37 107 H 100 10/13/18 19:32 101 H 100 10/13/18 19:27 94 H 99 10/13/18 19:22 102 H 100 10/13/18 19:17 103 H 99 10/13/18 19:15 102 H 149/88 10/13/18 19:12 99 H 100 10/13/18 19:07 100 H 99 10/13/18 19:02 102 H 99 10/13/18 18:57 99 H 99 10/13/18 18:52 99 H 100 10/13/18 18:51 98.2 F 16 10/13/18 18:47 101 H 100 10/13/18 18:45 100 H 144/87 10/13/18 18:42 95 H 100 10/13/18 18:37 97 H 18 100 10/13/18 18:32 97 H 100 10/13/18 18:27 106 H 99 10/13/18 18:22 104 H 99 10/13/18 18:17 104 H 99 10/13/18 18:15 101 H 149/88 10/13/18 18:12 103 H 99 10/13/18 18:07 103 H 100 10/13/18 18:02 105 H 100 10/13/18 17:57 102 H 98 10/13/18 17:52 106 H 97 10/13/18 17:47 98 H 98 10/13/18 17:45 103 H 141/88 Intake and Output 10/14/18 10/14/18 10/14/18 06:59 14:59 22:59 Intake Total 1000 625 Output Total 500 1200 Balance -500 -200 625 Intake: IV 1000 625 D5lr 1,000 ml @ 125 mls/ 1000 625 hr IV DIRECT [facility] Rx#: [id number] Blood Product 0 Leukoreduced Red Blood 0 Cells Unit [id number] Leukoreduced Red Blood 0 Cells Unit [id number] Output: Urine 500 1200 Indwelling Catheter 1200 Uretheral ([place]) 500 Other: Total, Output Amount 500 - Exam Breasts: Present: deferred Cardiovascular: Present: Regular rate Lungs: Present: Clear to auscultation Abdomen: Present: soft, distention (moderate ), abnormal bowel sounds (hypoact abdiel, but improved from this morning ) Uterus: Present: fundal height below umbilicus Extremities: Absent: edema Incision: Present: dressed - Labs Labs: Abnormal lab results 10/13/18 10/13/18 10/13/18 Range/Units 05:30 18:00 18:00 RBC (3.65-5.03) M/mm3 Hgb (10.1-14.3) gm/dl Hct (30.3-42.9) % MCV (79-97) fl MCH (28-32) pg RDW (13.2-15.2) % Creatinine (0.7-1.2) mg/dL Magnesium 3.90 H (1.7-2.3) mg/dL Lactate Dehydrogenase (91-180) units/L Ur Specific [place] 1.031 H (1.003-1.030) Urine WBC (Auto) 32.0 H (0.0-6.0) /HPF Crossmatch See Detail 10/13/18 10/13/18 10/14/18 Range/Units 18:00 23:42 00:50 RBC (3.65-5.03) M/mm3 Hgb 5.6 L* D (10.1-14.3) gm/dl Hct 16.6 L* D (30.3-42.9) % MCV (79-97) fl MCH (28-32) pg RDW (13.2-15.2) % Creatinine 0.5 L (0.7-1.2) mg/dL Magnesium 4.00 H (1.7-2.3) mg/dL Lactate Dehydrogenase 266 H (91-180) units/L Ur Specific [place] (1.003-1.030) Urine WBC (Auto) (0.0-6.0) /HPF Crossmatch 10/14/18 10/14/18 Range/Units 02:00 05:45 RBC 2.47 L (3.65-5.03) M/mm3 Hgb 6.0 L (10.1-14.3) gm/dl Hct 17.6 L* (30.3-42.9) % MCV 71 L (79-97) fl MCH 24 L (28-32) pg RDW 17.2 H (13.2-15.2) % Creatinine (0.7-1.2) mg/dL Magnesium 4.00 H (1.7-2.3) mg/dL Lactate Dehydrogenase (91-180) units/L Ur Specific [place] (1.003-1.030) Urine WBC (Auto) (0.0-6.0) /HPF Crossmatch
[2018-10-14 18:21] LABS: Hematocrit 22.7 % (30.3-42.9)
[2018-10-14] MEDS: FEOSOL PO SCH (20:57)
[2018-10-14] MEDS: MILK OF MAGNESIA PO PRN (21:50)
[2018-10-15] MEDS: PERCOCET 5/325 PO PRN ×4 (02:26→22:02)
[2018-10-15] MEDS ORDERED: SYNTHROID 150 MCG, SYNTHROID 25 MCG PO SCH (06:00)
[2018-10-15] MEDS: SYNTHROID PO SCH ×2 (07:11→07:29)
[2018-10-15] MEDS: TORADOL IV PRN (07:11)
[2018-10-15] MEDS: FEOSOL PO SCH (08:39)
--- NOTE | 2018-10-15 08:41 | Progress Note ---
Assessment and Plan A: POD#2 s/p primary section at term Acute on chronic anemia s/p 2 units PRBCs, post transfusion hemoglobin and hematocrit pending Severe Preeclampsia s/p 24 hrs Magnesium Sulfate for Seizure Prophylaxis Hypothyroidism on Levothyroxine P: Slowly advance diet Encourage ambulation Monitor clinically Continue present management Subjective - Subjective Date of service: 10/15/18 Principal diagnosis: s/p primary section, severe preeclamspia, acute on chronic anemia Patient reports: appetite normal, voiding normally, pain well controlled, ambulating normally [place]: doing well Objective - Vital Signs Latest vital signs: Vital Signs Temp Pulse Resp BP BP Pulse Ox 10/15/18 07:11 18 10/15/18 04:49 97 H 100 10/15/18 04:12 98.6 F 84 18 97 10/15/18 03:26 18 10/15/18 02:26 18 10/15/18 00:09 97.5 F L 90 18 137/67 100 10/14/18 21:26 18 10/14/18 21:00 85 100 10/14/18 20:58 97.8 F 18 152/89 10/14/18 20:56 18 10/14/18 16:54 20 10/14/18 16:09 98.6 F 89 16 145/90 100 10/14/18 14:30 98.7 F 78 20 140/78 10/14/18 13:49 89 99 10/14/18 13:44 87 98 10/14/18 13:39 95 H 99 10/14/18 13:37 90 146/78 10/14/18 13:34 93 H 99 10/14/18 13:33 91 H 69 L 10/14/18 13:27 89 100 10/14/18 13:22 90 135/68 100 10/14/18 13:17 93 H 100 10/14/18 13:12 89 100 10/14/18 13:07 91 H 139/71 100 10/14/18 13:02 88 100 10/14/18 12:57 91 H 100 10/14/18 12:52 93 H 140/68 100 10/14/18 12:47 94 H 100 10/14/18 12:42 91 H 100 10/14/18 12:37 97 H 149/65 100 10/14/18 12:32 102 H 100 10/14/18 12:27 97 H 100 10/14/18 12:22 94 H 165/82 100 10/14/18 12:17 94 H 100 10/14/18 12:12 93 H 100 10/14/18 12:07 100 H 134/73 100 10/14/18 12:02 99 H 100 10/14/18 11:57 101 H 100 10/14/18 11:52 102 H 147/78 100 10/14/18 11:47 103 H 143/81 100 10/14/18 11:42 104 H 138/83 100 10/14/18 11:37 104 H 140/81 100 10/14/18 11:32 102 H 143/80 100 10/14/18 11:30 98.4 F 10/14/18 11:27 108 H 100 10/14/18 11:24 98.4 F 103 H 141/82 10/14/18 11:22 104 H 100 10/14/18 11:17 104 H 100 10/14/18 11:12 98 H 100 10/14/18 11:07 99 H 100 10/14/18 11:02 100 H 100 10/14/18 10:57 97 H 100 10/14/18 10:52 101 H 100 10/14/18 10:49 102 H 138/80 10/14/18 10:47 102 H 100 10/14/18 10:42 101 H 100 10/14/18 10:37 98 H 100 10/14/18 10:34 96 H 136/81 10/14/18 10:32 99 H 100 10/14/18 10:27 96 H 100 10/14/18 10:22 104 H 100 10/14/18 10:20 109 H 125/79 10/14/18 10:17 102 H 100 10/14/18 10:12 101 H 100 10/14/18 10:07 100 H 100 10/14/18 10:04 101 H 131/72 10/14/18 10:02 101 H 100 10/14/18 09:57 106 H 100 10/14/18 09:52 100 H 100 10/14/18 09:49 100 H 135/71 10/14/18 09:47 101 H 100 10/14/18 09:42 103 H 100 10/14/18 09:37 97 H 100 10/14/18 09:34 100 H 134/70 10/14/18 09:32 107 H 100 10/14/18 09:31 106 H 88 10/14/18 09:26 94 H 100 10/14/18 09:21 97 H 100 10/14/18 09:20 98 H 137/72 10/14/18 09:16 93 H 100 10/14/18 09:11 99 H 100 10/14/18 09:06 103 H 100 10/14/18 09:05 100 H 134/83 10/14/18 09:01 102 H 100 10/14/18 09:00 98.4 F 10/14/18 08:56 98 H 100 10/14/18 08:51 104 H 100 10/14/18 08:46 100 H 100 10/14/18 08:45 98.3 F 104 H 157/98 10/14/18 08:41 103 H 100 10/14/18 08:40 102 H 140/83 Intake and Output 10/14/18 10/15/18 10/15/18 23:59 07:59 15:59 Intake Total 745 10 Output Total 2400 Balance -1655 10 Intake: IV 625 10 D5lr 1,000 ml @ 125 mls/ 625 hr IV [facility] Rx#: [id number] Left Antecubital 10 Oral 120 Output: Urine 2400 Indwelling Catheter 1800 Void 600 Other: Total, Intake Amount 120 Total, Output Amount 600 # Voids Indwelling Catheter 1 Void 1 # Bowel Movements 0 - Exam Breasts: Present: normal Cardiovascular: Present: Regular rate, Normal S1 Lungs: Present: Clear to auscultation, Normal air movement Abdomen: Present: normal appearance, soft, normal bowel sounds. Absent: distention, tenderness, guarding Uterus: Present: firm, fundal height below umbilicus. Absent: bogginess, tenderness Extremities: Present: normal Deep Tendon Reflex Grade: Normal +2 Incision: Present: normal, dry, intact - Labs Labs: Abnormal lab results 10/13/18 10/14/18 Range/Units 05:30 18:00 Hgb 8.0 L (10.1-14.3) gm/dl Hct 22.7 L (30.3-42.9) % Crossmatch See Detail
[2018-10-16] MEDS: IBUPROFEN PO PRN ×3 (05:07→18:28)
[2018-10-16] MEDS: PERCOCET 5/325 PO PRN ×3 (05:08→18:27)
[2018-10-16] MEDS: SYNTHROID PO SCH ×2 (05:55)
--- NOTE | 2018-10-16 08:36 | Progress Note ---
Assessment and Plan A: POD#3 s/p primary section at term Acute on chronic anemia s/p 2 units PRBCs, post transfusion hemoglobin and hematocrit pending Severe Preeclampsia s/p 24 hrs Magnesium Sulfate for Seizure Prophylaxis Hypothyroidism on Levothyroxine P: Advance diet Encourage ambulation Monitor clinically Add Labetolol 100 bid Continue present management Possible discharge tomorrow Subjective - Subjective Date of service: 10/16/18 Principal diagnosis: s/p primary section, severe preeclamspia, acute on chronic anemia Patient reports: appetite normal, voiding normally, pain well controlled, flatus, ambulating normally [place]: doing well Objective - Vital Signs Latest vital signs: Vital Signs Temp Pulse Resp BP Pulse Ox 10/16/18 06:08 18 10/16/18 06:07 18 10/16/18 05:08 18 10/16/18 05:07 18 10/16/18 01:08 98.0 F 85 20 140/87 100 10/15/18 23:02 18 10/15/18 22:02 18 10/15/18 13:57 20 10/15/18 11:38 97.9 F 86 16 120/86 96 Intake and Output 10/15/18 10/16/18 10/16/18 23:59 07:59 15:59 Intake Total 980 Output Total 2 Balance 978 Intake: Oral 980 Output: Urine 2 Void 2 Other: Total, Intake Amount 980 Total, Output Amount 2 # Bowel Movements 0 - Exam Breasts: Present: normal Cardiovascular: Present: Regular rate, Normal S1 Lungs: Present: Clear to auscultation, Normal air movement Abdomen: Present: normal appearance, soft, normal bowel sounds. Absent: distention, tenderness, guarding Uterus: Present: normal, firm, fundal height below umbilicus. Absent: bogginess, tenderness Extremities: Present: normal Deep Tendon Reflex Grade: Normal +2 Incision: Present: normal, intact
[2018-10-16] MEDS: NORMODYNE PO SCH ×2 (09:37→23:27)
[2018-10-16] MEDS: FEOSOL PO SCH (09:37)
[2018-10-16] MEDS: MILK OF MAGNESIA PO PRN (10:57)
[2018-10-16] MEDS: MYLICON PO PRN (18:31)
[2018-10-17] MEDS ORDERED: BOOSTRIX IM ONE (06:00)
[2018-10-17] MEDS: SYNTHROID PO SCH ×2 (06:29)
[2018-10-17] MEDS: IBUPROFEN PO PRN ×3 (07:20→22:35)
--- NOTE | 2018-10-17 09:24 | Progress Note ---
Assessment and Plan A: POD#4 s/p primary section at term Acute on chronic anemia s/p 2 units PRBCs, post transfusion hemoglobin and hematocrit pending Severe Preeclampsia s/p 24 hrs Magnesium Sulfate for Seizure Prophylaxis Hypothyroidism on Levothyroxine P: Advance diet Encourage ambulation Monitor clinically Add Labetolol 100 bid increased to 200 mg bid added procardia 30 mg po qd Continue present management Possible discharge tomorrow Subjective - Subjective Date of service: 10/17/18 Principal diagnosis: s/p primary section, severe preeclamspia, acute on chronic anemia Patient reports: appetite normal, voiding normally, pain well controlled, flatus, ambulating normally : doing well Objective - Vital Signs Latest vital signs: Vital Signs Temp Pulse Resp BP BP Pulse Ox 10/17/18 07:20 18 10/17/18 00:13 98.9 F 80 20 133/77 99 10/16/18 23:27 98.5 F 81 18 152/89 152/89 10/16/18 20:38 99.0 F 91 H 18 145/95 100 10/16/18 19:28 18 10/16/18 19:27 18 10/16/18 15:48 98.5 F 84 20 146/76 97 10/16/18 09:37 152/92 Intake and Output 10/16/18 10/17/18 10/17/18 23:59 07:59 15:59 Intake Total 360 360 Balance 360 360 Intake: Oral 360 Intake, Free Water 360 Other: Total, Intake Amount 120 # Voids Void 1 1 - Exam Breasts: Present: normal Cardiovascular: Present: Regular rate, Normal S1 Lungs: Present: Clear to auscultation, Normal air movement Abdomen: Present: normal appearance, soft, normal bowel sounds. Absent: distention, tenderness, guarding Uterus: Present: normal, firm, fundal height below umbilicus. Absent: bogginess, tenderness Extremities: Present: normal Deep Tendon Reflex Grade: Normal +2 Incision: Present: normal, dry, intact
[2018-10-17] MEDS: FEOSOL PO SCH (10:19)
[2018-10-17] MEDS: PROCARDIA XL PO SCH (10:19)
[2018-10-17] MEDS: NORMODYNE PO SCH ×2 (10:19→22:30)
[2018-10-17] MEDS: MYLICON PO PRN (11:30)
[2018-10-17] MEDS: PERCOCET 5/325 PO PRN ×2 (11:30→15:57)
[2018-10-18] MEDS: SYNTHROID PO SCH ×2 (06:29)
--- NOTE | 2018-10-18 08:12 | Progress Note ---
Assessment and Plan A: POD#5 s/p primary section at term Acute on chronic anemia s/p 2 units PRBCs Severe Preeclampsia s/p 24 hrs Magnesium Sulfate for Seizure Prophylaxis now on Labetalol 200 mg BID and Procardiz XL 30 mg daily Hypothyroidism on Levothyroxine P: Remove diane today Discharge home with follow up in 1 wk for a blood pressure check Subjective - Subjective Date of service: 10/18/18 Principal diagnosis: s/p primary section, severe preeclamspia, acute on chronic anemia Interval history: Pt anxious to go home. blood pressures well controlled. +flatus. + bowel movement. No dizziness with ambulation. Patient reports: appetite normal, voiding normally, pain well controlled, flatus, bowel movement, ambulating normally, no dizzy ambulation : doing well Objective - Vital Signs Latest vital signs: Vital Signs Temp Pulse Resp BP BP Pulse Ox 10/18/18 00:50 98.4 F 95 H 18 123/73 99 10/17/18 22:30 88 123/83 10/17/18 20:40 98.4 F 90 18 134/84 99 10/17/18 15:45 98.8 F 106 H 12 128/71 100 10/17/18 11:38 98.1 F 105 H 12 144/84 97 10/17/18 10:19 105 H 139/86 Intake and Output 10/17/18 10/18/18 10/18/18 22:59 06:59 14:59 Intake Total 840 240 Balance 840 240 Intake: Oral 840 240 Other: Total, Intake Amount 240 120 # Voids Void 1 1 - Exam Breasts: Present: deferred Cardiovascular: Present: Regular rate Lungs: Present: Clear to auscultation Abdomen: Present: soft, normal bowel sounds Uterus: Present: fundal height below umbilicus Extremities: Present: normal Incision: Present: intact
--- NOTE | 2018-10-18 08:18 | Discharge Summary ---
Providers - Providers Date of Admission: 10/13/18 05:11 Date of discharge: 10/18/18 Attending physician: FABY PENG MD Primary care physician: FABY PENG MD Hospitalization Reason for admission: active labor, rupture of membranes, other (Severe Preeclampsia ) Delivery: Procedure: section, primary low transverse Procedure details: Please see operative report. Incision: intact Other procedures: none complications: none Discharge diagnosis: IUP at term delivered baby: female Hospital course: The patient was admitted in active labor with ruptured membranes and malpresentation. She also was noted to have severe preeclampsia on admission. She underwent a primary low transverse section which she tolerated well. She was then observed in the labor and delivery unit for 24 hours while she received IV magnesium sulfate for seizure prophylaxis. During her postoperative course, she experienced delayed return of bowel function and elevated blood pressures requiring labetalol 200 mg twice a day and Procardia XL 30 mg daily. She also was noted to have acute on chronic anemia requiring transfusion of 2 units of packed red blood cells. By postoperative day #5 she met discharge criteria. She will follow-up in the office of Dr. Koo in 1 week. Condition at discharge: Stable Disposition: DC-01 TO HOME OR SELFCARE - Discharge Diagnoses (1) Malpresentation of fetus, delivered Status: Acute (2) Anemia Status: Acute Qualifiers: Anemia type: unspecified type Qualified Code(s): D64.9 - Anemia, unspecified (3) Severe preeclampsia Status: Acute Qualifiers: Trimester: third trimester Qualified Code(s): O14.13 - Severe pre- eclampsia, third trimester (4) Active labor at term Status: Acute (5) S/P section Status: Acute (6) Term of female Status: Acute Plan - Discharge Medications Prescriptions: Ferrous Sulfate [Feosol 325 MG tab] 325 mg PO BID #60 tablet Labetalol [Labetalol 200mg TAB] 200 mg PO BID #60 tablet Ibuprofen [Motrin] 800 mg PO Q8HR PRN #30 tablet PRN Reason: Pain, Moderate (4-6) oxyCODONE /ACETAMINOPHEN [Percocet 5/325] 1 tab PO Q6HR PRN #40 tablet PRN Reason: Pain NIFEdipine [Procardia Xl] 30 mg PO DAILY #30 tab.er.24 - Provider Discharge Summary Activity: routine, no sex for 6 weeks, no heavy lifting 4 weeks, no strenuous exercise Diet: routine Instructions: routine Additional instructions: [] Smoking cessation referral if applicable(refer to patient education folder for contact #) [] Refer to [facility] Booklet Call your doctor immediately for: * Fever > 100.5 * Heavy vaginal bleeding ( >1 pad per hour) * Severe persistent headache * Shortness of breath * Reddened, hot, painful area to leg or breast * Drainage or odor from incision. * Keep incision clean and dry at all times and follow doctor's instructions regarding bathing/showering - Follow up plan Follow up: MELANIE KOO MD [Staff Physician] - 10/25/18 (Please call the office for a blood pressure check )
[2018-10-18] MEDS: PERCOCET 5/325 PO PRN (08:30)
[2018-10-18 08:57] VITALS: BP 138/80
[2018-10-18] MEDS: FEOSOL PO SCH (10:25)
[2018-10-18] MEDS: NORMODYNE PO SCH (10:26)
[2018-10-18] MEDS: PROCARDIA XL PO SCH (10:28)
== END 2018-10-18 11:50 | disposition home or self-care (01) | DRG 772 ==
LOC: TRG 05:05 → LD 05:11 → OB 10-14 14:39
PROVIDERS: ADMIT Obstetrics & Gynecology; ATTEND Obstetrics & Gynecology
PROC: 10D00Z1 Extraction of Products of Conception, Low, Open Approach (ICD-10-PCS; principal; 2018-10-13)
PROC: 30233N1 Transfusion of Nonautologous Red Blood Cells into Peripheral Vein, Percutaneous Approach (ICD-10-PCS; 2018-10-14)
PROC: 3E0234Z Introduction of Serum, Toxoid and Vaccine into Muscle, Percutaneous Approach (ICD-10-PCS; 2018-10-14)
DX: O14.14 Severe pre-eclampsia complicating childbirth (principal); D62 Acute posthemorrhagic anemia; O32.8XX0 Maternal care for other malpresentation of fetus, not applicable or unspecified; O99.284 Endocrine, nutritional and metabolic diseases complicating childbirth; E03.9 Hypothyroidism, unspecified; O99.02 Anemia complicating childbirth; D64.9 Anemia, unspecified; O99.824 Streptococcus B carrier state complicating childbirth; Z3A.41 41 weeks gestation of pregnancy; Z37.0 Single live birth; Z23 Encounter for immunization
CPT/HCPCS: 36415; 76815; 76819; 81001; 82565; 83615; 83735; 84450; 84460; 84550; 85014; 85018; 85027; 86592; 86850; 86900; 86901; 86920; 87086; 88302; 88305; 88307; 90471; 90715; G0378; J0290; J0690; J1170; J1200; J1885; J2250; J2405; J2590; J2765; J3010; J3475; J7040; J7120; J7121; P9016